=== PATIENT | female | born 1965 | race Two or more races ===

== ENCOUNTER 2021-12-29 15:21 | Emergency (ER) | payer SELFPAY ==
[~2021-12-29] VITALS: Ht 162.6 cm; Wt 102.5 kg
--- NOTE | 2021-12-29 15:30 | NUR ---
BIB RA 62 FROM HOME C/O ABDOMINAL PAIN AND NAUSEA X 3 DAYS. PLACED ON BED, AAOX4, BREATHING EVEN AND UNLABORED.
--- NOTE | 2021-12-29 16:45 | NUR ---
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
[2021-12-29 16:51] LABS: BASOPHILS % (AUTO) 0.1 % (0.0-2.0); EOSINOPHILS % (AUTO) 1.3 % (0.0-6.0); HEMATOCRIT 38 % (33-45); HEMOGLOBIN 12.6 g/dL (11.5-14.8); LYMPHOCYTES # (AUTO) 1.6 K/uL (0.8-4.8); LYMPHOCYTES % (AUTO) 14.3 % (20.0-44.0); MEAN CORPUSCULAR HGB CONC 33 g/dl (31.0-36.0); MEAN CORPUSCULAR VOLUME 86 fL (82-100); MONOCYTES # (AUTO) 0.8 K/uL (0.1-1.30); MONOCYTES % (AUTO) 7.1 % (2.0-12.0); NEUTROPHILS # (AUTO) 8.4 K/uL (1.8-8.9); NEUTROPHILS % (AUTO) 77.2 % (43.0-81.0); PLATELET COUNT (AUTO) 231 K/uL (150-450); RED BLOOD CELL COUNT(AUTO) 4.43 MIL/uL (4.0-5.2); WHITE BLOOD COUNT (AUTO) 10.9 K/uL (4.3-11.0)
[2021-12-29 16:57] LABS: CREATININE 0.8 mg/dL (0.6-1.3); POTASSIUM 3.3 mmol/L (3.5-5.1)
[2021-12-29] MEDS ORDERED: ONDANSETRON HCL/PF 4 MG/2 ML VIAL IVP ONE (17:00)
[2021-12-29] MEDS ORDERED: IV NS 0.9% 1,000 ML BAG IV ONE (17:00)
[2021-12-29 17:03] LABS: ALBUMIN 3.1 g/dL (3.4-5.0); BILIRUBIN,DIRECT 0.2 mg/dL (0.0-0.2); BILIRUBIN,TOTAL 0.5 mg/dL (0.2-1.0); TOTAL PROTEIN, SERUM 8.1 g/dL (6.4-8.2)
--- NOTE | 2021-12-29 17:05 | NUR ---
US TECH AT BEDSIDE,ASKED TO GIVE US URINE SAMPLE AFTER
[2021-12-29] MEDS ORDERED: IOHEXOL-300 100 ML VIAL IV ONE (17:06)
[2021-12-29] MEDS ORDERED: IV NS 0.9% 250 ML IV ONE (17:07)
[2021-12-29] MEDS ORDERED: POTASSIUM CHLORIDE 20 MEQ TAB.PRT.SR PO ONE ×2 (18:00→18:03)
[2021-12-29] MEDS ORDERED: ONDANSETRON HCL/PF 4 MG/2 ML VIAL ONE (18:03)
--- NOTE | 2021-12-29 19:00 | NUR ---
BLOOD CULTURE AND URINE SAMPLE SENT TO LAB
[2021-12-29 20:00] VITALS: BP 129/72
[2021-12-29] MEDS ORDERED: ONDA4TAB5 PO (20:00)
[2021-12-29] MEDS ORDERED: NAPR-1009 PO (20:00)
[2021-12-29] MEDS ORDERED: AMOX-430 PO (20:00)
[2021-12-29] MEDS ORDERED: HYDR-4303 PO (20:00)
[2021-12-29 20:06] LABS: BILIRUBIN,URINE NEGATIVE (NEGATIVE); COLOR,URINE YELLOW (YELLOW); LEUKOCYTE ESTERASE ,URINE NEGATIVE (NEGATIVE); NITRITE, URINE NEGATIVE (NEGATIVE); PROTEIN,URINE NEGATIVE (NEGATIVE); UGLUCOSE NEGATIVE (NEGATIVE); UROBILINOGEN,URINE 0.2 EU/dL (0.2)
--- NOTE | 2021-12-29 20:57 | NUR ---
Patient discharged to home in stable condition. Written and verbal after care instructions given. Patient verbalizes understanding of instruction.IV removed. Catheter intact and site benign. Pressure and 4x4 applied to site. No bleeding noted.
== END 2021-12-29 20:58 | disposition home or self-care (01) ==
LOC: ER 15:25
DX: K80.70 Calculus of gallbladder and bile duct without cholecystitis without obstruction (principal); E87.6 Hypokalemia; K52.9 Noninfective gastroenteritis and colitis, unspecified; I45.9 Conduction disorder, unspecified; E86.0 Dehydration; R82.4 Acetonuria
CPT/HCPCS: 99285; 70450; 96374; 76705; 96361; 93005; 74177; 85025; 80048; 87040 ×2; 83605; 83690; 80076; 81003; 36415; J2405; J7030; J7050; Q9967